=== PATIENT | male | born 1975 | race Caucasian/White ===

== ENCOUNTER 2016-08-06 09:42 | Emergency (ER) | payer OTHER ==
[~2016-08-06] VITALS: Ht 195.6 cm; Wt 160.5 kg
[~2016-08-06 09:42] MED LIST: ALBI1INJ SQ; CHLO50TA PO; D32000CA PO; GEMF600T PO; LISI20 PO; METF500 PO; NIFE90 PO; ZOCO40TA PO; ZOFR4TAB3 SL
[2016-08-06 09:46] VITALS: BP 161/92; PULSE 95; RESP 16; TEMP 98.5; O2SAT 97
[2016-08-06] MEDS ORDERED: SIMV5TAB3 PO (10:00)
[2016-08-06] MEDS ORDERED: METF500T PO (10:00)
[2016-08-06] MEDS ORDERED: GLIM1TAB PO (10:00)
[2016-08-06] MEDS ORDERED: LISI2.5T3 PO (10:00)
[2016-08-06] MEDS ORDERED: IBUPROFEN 600 MG TAB PO ONE (10:15)
--- NOTE | 2016-08-06 10:48 | RADHPO ---
EXAM DATE/TIME: 08/06/2016 10:14 [facility] COMPARISON: No previous studies available for comparison. INDICATIONS : Left lateral foot pain/swelling/bruising post stubbing 5th toe. MEDICAL HISTORY : Hypertension. Hypercholesterolemia. Hiatal hernia. Diabetic. SURGICAL HISTORY : Umbilical hernia repair. Right tibia cristel. ENCOUNTER: Initial ACUITY: 4 - 6 days PAIN SCORE: 7/10 LOCATION: Left lateral foot FINDINGS: Linear fracture across the base of the proximal phalanx fifth toe in reasonable alignment. CONCLUSION: Fracture as described above. Yohan Molina MD FACR on August 06, 2016 at 10:45 Board Certified Radiologist. This report was verified electronically.
--- NOTE | 2016-08-06 11:28 | RADHPO ---
EXAM DATE/TIME: 08/06/2016 10:17 [facility] COMPARISON: No previous studies available for comparison. INDICATIONS : Right ankle pain post twist & fall. MEDICAL HISTORY : Hypertension. Hypercholesterolemia. Hiatal hernia. Diabetic. SURGICAL HISTORY : Umbilical hernia repair. Right tibial cristel. ENCOUNTER: Initial ACUITY: 4 - 6 days PAIN SCORE: 8/10 LOCATION: Right ankle FINDINGS: AP and lateral views of the right tibia and fibula were obtained and demonstrate an intramedullary ro d in right tibia with locking screws. There is an old proximal fibular fracture as well. There is no acute fracture or malalignment. As well-corticated ossific structure along the distal fibula. The sof t tissues appear unremarkable. CONCLUSION: 1. No acute fracture or malalignment. 2. Old postsurgical changes. Memo Lawson MD transfixing an old tibial fracture. on August 06, 2016 at 11:25 Board Certified Radiologist. This report was verified electronically.
--- NOTE | 2016-08-06 11:33 | PD ---
HPI Chief Complaint: Injury Time Seen by Provider: 10:00 Travel History International Travel<30 days: No Contact w/Intl Traveler<30days: No Traveled to known affect area: No History of Present Illness HPI Patient is a 40 year old male who comes in complaining of left fifth toe pain and right ankle pain. He says that he hit his toe Tuesday while doing laundry. He says the next day he noticed his foot and toes had started turning purple. He also reports that a few days later he twisted his right ankle. He says he has pain with walking on both feet. He denies any other injuries or complaints. He has been taking Ibuprofen at home for pain. PFSH Past Medical History Cancer: No Cardiovascular Problems: Yes (HTN) High Cholesterol: Yes Diabetes: Yes Patient Takes Glucophage: Yes Diminished Hearing: No Endocrine: Yes ( diabetes dx in may 2015) Genitourinary: No Hiatal Hernia: Yes Hypertension: Yes Immune Disorder: No Musculoskeletal: Yes (broken right leg repaired w/rods) Neurologic: No Psychiatric: No Reproductive: No Respiratory: No Immunizations Current: Yes Past Surgical History Abdominal Surgery: Yes (UMBILICAL HERNIA REPAIR) Other Surgery: Yes (nose x 2 r/t injury) Social History Alcohol Use: Yes (occas. beer) Tobacco Use: No (quit may 15 2015 smoked cigs 1 ppd for approx 25 years) Substance Use: No Allergies-Medications (Allergen,Severity, Reaction): Coded Allergies: No Known Allergies (Verified , 08/06/16) Reported Meds & Prescriptions Reported Meds & Active Scripts Active Reported Glimepiride 1 Mg Tab Unknown Dose PO DAILY Take with breakfast or first main meal Simvastatin 5 Mg Tab Unknown Dose PO DAILY Lisinopril 2.5 Mg Tab Unknown Dose PO DAILY Metformin (Metformin HCl) 500 Mg Tab Unknown Dose PO BIDPC With meals Review of Systems General / Constitutional: No: Fever HENT: No: Headaches, Lightheadedness Cardiovascular: No: Chest Pain or Discomfort Respiratory: No: Shortness of Breath Musculoskeletal: Positive: Pain Skin: No Rash Neurologic: No: Weakness, Dizziness Physical Exam Narrative GENERAL: Awake and alert, in no acute distress. SKIN: Focused skin assessment warm/dry. Mild ecchymosis at the base of the second and third toe on the left. HEAD: Atraumatic. Normocephalic. EYES: Pupils equal and round. No scleral icterus. ENT: Mucous membranes pink and moist. CARDIOVASCULAR: Regular rate and rhythm. No murmur appreciated. RESPIRATORY: No accessory muscle use. Clear to auscultation. Breath sounds equal bilaterally. MUSCULOSKELETAL: No obvious deformities. No clubbing. No cyanosis. No edema. Pedal pulses intact. Tender to palpation of the left fifth toe. Tenderness to palpation of the posterior aspect of the right lateral malleolus. Full range of motion of the right ankle. NEUROLOGICAL: Awake and alert. No obvious cranial nerve deficits. Motor grossly within normal limits. Normal speech. Data Data Last Documented VS Vital Signs Date Time Temp Pulse Resp B/P Pulse Ox O2 Delivery O2 Flow Rate FiO2 08/06/16 09:46 98.5 95 16 161/92 97 Orders Ankle, Complete ([id number]) (08/06/16 ) Foot, Complete ([id number]) (08/06/16 ) Ibuprofen (Motrin) (08/06/16 10:15) MDM Medical Decision Making Medical Screen Exam Complete: Yes Emergency Medical Condition: Yes Medical Record Reviewed: Yes Differential Diagnosis Toe fracture versus foot fracture versus ankle fracture Narrative Course Patient is a 40-year-old male comes in complaining of left fifth toe pain as well as right ankle pain. Exam shows tenderness to left fifth toe and posterior to the right malleolus. Patient has full range of motion of his toes and his ankles. Anal of the left foot shows a left fifth toe fracture. X-ray of the right ankle show no acute abnormalities. Vasiliy tape performed on left foot. Patient given prescription for tramadol as needed for severe pain. Advised to take ibuprofen or Tylenol as needed otherwise. Advised to follow-up with his doctor. Advised to return to the ED as needed for any worsening symptoms. Diagnosis Primary Impression: Toe fracture, left Qualified Code: S92.505A - Closed nondisplaced fracture of phalanx of lesser toe of left foot, unspecified phalanx, initial encounter Patient Instructions: General Instructions, Toe Fracture (ED) Additional Instructions: Take Tylenol or Ibuprofen as needed for pain. Take Tramadol for severe pain. Apply ice several times a day. Return to the ED as needed for any worsening symptoms. Scripts Tramadol 50 Mg Tab50 Mg PO Q6H PRN (PAIN) #12 TAB Ref 0 Prov:Tigist Chadwick MD 08/06/16 Disposition: 01 DISCHARGE HOME Condition: Stable Tigist Chadwick MD Aug 06, 2016 11:33
[2016-08-06] MEDS ORDERED: TRAM50TA PO (12:06)
== END 2016-08-06 12:16 | disposition home or self-care (01) ==
LOC: PHEFT 09:42
DX: S92.535A Nondisplaced fracture of distal phalanx of left lesser toe(s), initial encounter for closed fracture (principal); M25.571 Pain in right ankle and joints of right foot; I10 Essential (primary) hypertension; E78.00 Pure hypercholesterolemia, unspecified; E11.9 Type 2 diabetes mellitus without complications; W22.8XXA Striking against or struck by other objects, initial encounter; X50.0XXA Overexertion from strenuous movement or load, initial encounter; Y93.9 Activity, unspecified; Y92.9 Unspecified place or not applicable; Y99.9 Unspecified external cause status
CPT/HCPCS: 73610; 73630; 99283